=== PATIENT | male | born 1995 ===

== ENCOUNTER 2020-01-10 18:45 | Outpatient (CLI) | payer SELFPAY ==
--- NOTE | 2020-01-10 21:41 | Ultrasound Report ---
PROCEDURE: Testicle INDICATIONS: LT TESTICULAR PAIN, LT EPIDIDYMITIS TECHNIQUE: Real-time scanning was performed of the scrotum and testicles, with image documentation. Color and p ulse Doppler interrogation was performed of both testicles. COMPARISON: None. FINDINGS: Right: Testicle is normal in size at 5.1 x 2.3 x 3.0 cm, and homogenous in echotexture. Epididymis is normal in overall size and morphology. There is a small epididymal head cyst or spermatocele measu ring up to 0.5 x 0.3 x 0.2 cm. No hydrocele or varicoceles. Overlying scrotal skin is normal in thic kness. Left: Testicle is normal in size at 4.4 x 3.2 x 3.2 cm, and homogeneous in echotexture. The epididym is is heterogeneous in appearance. There is a hyperechoic region in the epididymal tail measuring up to 1.4 x 0.4 x 1.3 cm. There is associated internal vascularity. A small left hydrocele is demonstrat ed as well as a small left varicocele. There is slight asymmetric skin thickening in the left hemiscr otum. Doppler: Color and pulse Doppler demonstrate patent arterial and venous flow within both testes. IMPRESSION: 1. Heterogeneous enlargement of the left epididymis with a small left hydrocele and slight asymmetric left skin thickening. The constellation of findings are compatible with left epididymoorchitis. 2. Hyperechoic region within the left adrenal tail is nonspecific and is likely related to epididymit is. However, consider follow-up ultrasound in 3 months to demonstrate resolution following appropriat e therapy. 3. Small epididymal cyst or spermatocele within the right epididymal head. 4. Small left varicocele. Reviewed by: Myron Parham MD on 01/10/2020 9:40 PM PDT Approved by: Myron Parham MD on 01/10/2020 9:40 PM PDT Station ID: [id number]
== END 2020-01-10 18:46 | disposition home or self-care (01) ==
LOC: DI 18:45
PROVIDERS: ATTEND Physician Assistant
DX: R93.89 Abnormal findings on diagnostic imaging of other specified body structures (principal); N43.2 Other hydrocele; I86.1 Scrotal varices
CPT/HCPCS: 76870

== ENCOUNTER 2020-06-23 12:35 | Outpatient (CLI) | payer SELFPAY ==
--- NOTE | 2020-06-23 14:07 | XRAY Report ---
PROCEDURE: Chest 2 View X-Ray INDICATIONS: LEFT SIDED CHEST PRESSURE TECHNIQUE: 2 view(s) of the chest. COMPARISON: None. FINDINGS: Surgical changes and devices: None. Lungs and pleura: No pleural effusions or pneumothorax. Lungs are clear. Mediastinum: Mediastinal contours are normal. Heart size is normal. Bones and chest wall: No suspicious bony abnormalities. Soft tissues appear unremarkable. IMPRESSION: No acute cardiopulmonary process demonstrated radiographically. Reviewed by: Rizwan Ramirez MD on 06/23/2020 12:55 PM [facility] Approved by: Rizwan Ramirez MD on 06/23/2020 12:55 PM [facility] Station ID: [id number]
[2020-06-23 20:09] LABS: BASOPHILS % (AUTO) 0.4 %; EOSINOPHILS # (AUTO) 0.1 10^3/uL (0.0-0.7); EOSINOPHILS % (AUTO) 1.6 %; HGB - HEMOGLOBIN 16.8 g/dL (14.0-18.0); LYMPHOCYTES # (AUTO) 1.3 10^3/uL (1.5-3.5); LYMPHOCYTES % (AUTO) 15.7 %; MEAN CORPUSCULAR HEMOGLOBIN 30.9 pg (27.0-31.0); MEAN CORPUSCULAR HGB CONC 33.6 g/dL (32.0-36.0); MEAN CORPUSCULAR VOLUME 91.9 fL (80.0-94.0); MEAN PLATELET VOLUME 11.6 fL (7.4-11.4); MONOCYTES # (AUTO) 0.4 10^3/uL (0.0-1.0); MONOCYTES % (AUTO) 4.9 %; NEUTROPHILS # (AUTO) 6.3 10^3/uL (1.5-6.6); NEUTROPHILS % (AUTO) 76.8 %; PLT - PLATELET COUNT 182 10^3/uL (130-450); RED BLOOD COUNT 5.44 10^6/uL (4.70-6.10); RED CELL DISTRIBUTION WIDTH 12.5 % (12.0-15.0); WHITE BLOOD COUNT 8.2 x10^3/uL (4.8-10.8)
[2020-06-23 20:36] LABS: CALCIUM 9.9 mg/dL (8.5-10.3); CREATININE 0.7 mg/dL (0.6-1.2)
== END 2020-06-23 23:59 | disposition home or self-care (01) ==
LOC: DI.S 12:35
PROVIDERS: ATTEND Physician Assistant
DX: R07.89 Other chest pain (principal); R00.0 Tachycardia, unspecified
CPT/HCPCS: 36415; 80048; 84443; 85025